=== PATIENT | male | born 1940 | race Caucasian/White ===

== ENCOUNTER 2017-06-08 14:20 | Outpatient (CLI) | payer MEDICARE, OTHER ==
[~2017-06-08] VITALS: Ht 177.8 cm; Wt 97.7 kg
[~2017-06-08 14:20] MED LIST: ARTHRITIS PAIN325 MG PO; ASPIRIN 81M81 MG/TA2 PO; B-121000 MCG PO; CO Q-1050 MG PO; COENZYME Q-10100 M1 PO; CORDARONE200 MG/TAB PO; COZAAR 25MG25 MG/TAB PO; DEPO-TESTOS200 MG/M1 IM; DULERA1 ARO IH; ELIQUIS 5MG PO; FIBRO-XL1 CAP PO; FOLIC ACID 11 MG/TA1 PO; GLUCOSAMINE & C1 TE1 PO; LANOXIN 0.25M0.25 MG PO; LEVAQUIN 5500 MG/TA1 PO; LIPITOR 40MG TA40 MG PO; METAMUCIL1 PDR PO; MULTIPLE VITAMI1 CAP PO; MULTIPLE VITAMI1 TA5 PO; NITROSTAT0.4 MG/TAB SL; OMEGA 31000 MG PO; OMEGA-31000 MG PO; OXYGEN; PACERONE400 MG PO; PLAVIX 75MG TAB75 MG PO; PREDNISONE20 MG PO; PRILOSEC 20MG20 MG PO; RT SPIRIVA18 MCG IH; STIOLTO RESPIMAT IH; STIOLTO RESPIMAT4 GM IH; TESTOSTERONE 4 MG/24 HR IM; THEO-24 30300 MG/CAP PO; THEO-DUR 1100 MG/TAB PO; THEO-DUR 2200 MG/TAB PO; TOPROL XL 25MG25 MG PO; TYLENOL 325MG325 MG PO; TYLENOL 8 HR PO; [UNRECOGNIZED DRUG - OTHER]; heartburn med PO
[2017-06-08 14:30] VITALS: BP 108/65; PULSE 59; PULSE 61; TEMP 97.6
[2017-06-08] MEDS ORDERED: FIBER0.52 GM PO (15:06)
[2017-06-08] MEDS ORDERED: LASIX 20MG TABL20 MG PO (15:07)
[2017-06-08] MEDS ORDERED: FLOMAX 0.40.4 MG/CAP PO (15:07)
[2017-06-08] MEDS ORDERED: ENTRESTO 24 MG1 EACH PO (15:09)
[2017-06-08 15:10] LABS: HEMATOCRIT 37.5 % (42.0-52.0); HEMOGLOBIN 12.9 g/dl (13.5-18.0); MEAN CELL VOLUME 92 fl (80.0-100.0); MEAN CORPUSCULAR HEMOGLOBIN 32 pg (27.0-31.0); MEAN CORPUSCULAR HGB CONC 34 g/dl (33.0-37.0); MEAN PLATELET VOLUME 10.5 fl (7.4-10.4); PLATELET COUNT 136 K/mm3 (130-400); RED BLOOD COUNT 4.09 M/mm3 (4.20-5.60); REDCELL DISTRIBUTION WIDTH-CV 13.4 % (11.5-14.5)
[2017-06-08] MEDS ORDERED: PROTONIX 40MG T40 MG PO (15:10)
[2017-06-08 16:00] VITALS: BP 110/66; PULSE 55
== END 2017-06-08 16:17 | disposition home or self-care (01) ==
LOC: COL.CAR 14:20
PROVIDERS: Internal Medicine Interventional Cardiology
DX: I48.91 Unspecified atrial fibrillation (principal); I25.10 Atherosclerotic heart disease of native coronary artery without angina pectoris; I50.20 Unspecified systolic (congestive) heart failure; J84.10 Pulmonary fibrosis, unspecified; Z79.01 Long term (current) use of anticoagulants

== ENCOUNTER → 2017-06-16 | Outpatient (CLI) | payer MEDICARE, OTHER ==
[~2017-06-16] MED LIST changes: +ENTRESTO 24 MG1 EACH PO; +FIBER0.52 GM PO; +FLOMAX 0.40.4 MG/CAP PO; +LASIX 20MG TABL20 MG PO; +PROTONIX 40MG T40 MG PO
== END ==
LOC: COL.PUL 11:21
DX: R06.02 Shortness of breath (principal); Z87.891 Personal history of nicotine dependence

== ENCOUNTER 2017-07-04 09:14 | Day surgery (SDC) | payer MEDICARE, OTHER ==
[~2017-07-04] VITALS: Ht 177.8 cm; Wt 100.7 kg
[~2017-07-04 09:14] MED LIST changes: -ENTRESTO 24 MG1 EACH PO; +ENTRESTO 49 MG1 EACH PO; +MASON NATURAL1200 MG PO; -OMEGA 31000 MG PO
[2017-07-04 10:31] VITALS: BP 114/73; PULSE 78; TEMP 97.5
[2017-07-04 12:04] VITALS: BP 103/64; PULSE 73; TEMP 97.1
[2017-07-04 12:19] VITALS: BP 107/65; PULSE 63
[2017-07-04 12:34] VITALS: BP 94/68; PULSE 63
[2017-07-04 12:49] VITALS: BP 112/63; PULSE 65
== END 2017-07-04 13:15 | disposition home or self-care (01) ==
LOC: SDCO 09:14
DX: D12.3 Benign neoplasm of transverse colon (principal); K63.5 Polyp of colon; K57.30 Diverticulosis of large intestine without perforation or abscess without bleeding; K64.0 First degree hemorrhoids; K62.89 Other specified diseases of anus and rectum; I25.10 Atherosclerotic heart disease of native coronary artery without angina pectoris; J44.9 Chronic obstructive pulmonary disease, unspecified; I10 Essential (primary) hypertension; E78.00 Pure hypercholesterolemia, unspecified; I73.9 Peripheral vascular disease, unspecified; Z88.8 Allergy status to other drugs, medicaments and biological substances
CPT/HCPCS: OP; J2250; J3010; J7030

== ENCOUNTER → 2017-11-14 | Outpatient (CLI) | payer MEDICARE, OTHER | LOC: COL.VAS 07:56 | DX: I50.20 Unspecified systolic (congestive) heart failure (principal) | CPT/HCPCS: C8923; Q9957 ==

== ENCOUNTER → 2019-12-18 | Outpatient (CLI) | payer MEDICARE, OTHER | LOC: MC.RAD 13:53 | DX: N63.21 Unspecified lump in the left breast, upper outer quadrant (principal); Z79.01 Long term (current) use of anticoagulants ==

== ENCOUNTER 2020-03-07 20:36 | Emergency (ER) | payer MEDICARE, OTHER ==
[~2020-03-07] VITALS: Ht 177.8 cm; Wt 102.3 kg
[2020-03-07 22:29] VITALS: BP 133/75; PULSE 68; TEMP 97
== END 2020-03-07 22:29 | disposition home or self-care (01) ==
LOC: COL.ER 20:36
DX: L50.9 Urticaria, unspecified (principal); T36.0X5A Adverse effect of penicillins, initial encounter; I25.10 Atherosclerotic heart disease of native coronary artery without angina pectoris; I10 Essential (primary) hypertension; J44.9 Chronic obstructive pulmonary disease, unspecified; Z98.61 Coronary angioplasty status; Z87.891 Personal history of nicotine dependence; Z91.041 Radiographic dye allergy status; Z79.82 Long term (current) use of aspirin; Z79.02 Long term (current) use of antithrombotics/antiplatelets
CPT/HCPCS: J1200; J2920; J7030

== ENCOUNTER 2020-05-25 10:52 | Emergency (ER) | payer MEDICARE, OTHER ==
[~2020-05-25] VITALS: Ht 177.8 cm; Wt 109.1 kg
[2020-05-25 10:58] VITALS: TEMP 97
[2020-05-25] MEDS ORDERED: NORCO 325 MG-51 TAB PO (15:21)
[2020-05-25 15:55] VITALS: BP 102/75; PULSE 81
== END 2020-05-25 15:55 | disposition home or self-care (01) ==
LOC: COL.ER 10:52
DX: S70.01XA Contusion of right hip, initial encounter (principal); S82.831A Other fracture of upper and lower end of right fibula, initial encounter for closed fracture; S86.911A Strain of unspecified muscle(s) and tendon(s) at lower leg level, right leg, initial encounter; S20.211A Contusion of right front wall of thorax, initial encounter; J44.9 Chronic obstructive pulmonary disease, unspecified; Z98.61 Coronary angioplasty status; Z87.891 Personal history of nicotine dependence; Z79.82 Long term (current) use of aspirin; Z79.02 Long term (current) use of antithrombotics/antiplatelets; W17.81XA Fall down embankment (hill), initial encounter